=== PATIENT | female | born 1945 | race Caucasian/White ===

== ENCOUNTER → 2016-12-29 | Outpatient (CLI) | payer OTHER, MEDICARE ==
[~2016-12-29] MED LIST: ACETAMINOPHEN325 M1 PO; ADVIL100 M2 PO; ALEVE220 M1 PO; APAP500 PO; ASPIRIN325; ASPIRIN325 PO; COUMADIN 2 MG TA2 M1; CYMBALTA30 MG PO; CYMBALTA60 MG PO; GLUCOSAMINE &1 EACH PO; HYDROCODON-ACE1 EAC5; HYDROCODON-ACE1 EAC5 PO; IBUPROFEN 200200 M1 PO; LOSARTAN-HCTZ1 EAC1 PO; MULTIVITAMINS PO; NORVASC10 MG PO; PERCOCET 5-3251 EACH PO; PRAVACHOL40 MG PO; PRILOSEC 20 MG20 MG PO; TRIBENZOR 40-51 EAC1 PO; VITAMIN D1000 UNI1 PO; ZANAFLEX4 MG PO; ZOFRAN4 MG PO
== END ==
LOC: BC 11:03
DX: N64.4 Mastodynia (principal)

== ENCOUNTER → 2017-01-03 | Outpatient (CLI) | payer OTHER, MEDICARE ==
[~2017-01-03] VITALS: Ht 175.3 cm; Wt 118.2 kg
[~2017-01-03] MED LIST changes: +HYDROCODONE-AP1 EAC6 PO; +NABUMETONE 750750 M1 PO; +OCUVITE TABLET1 EAC1 PO; +VITAMINC500 PO
--- NOTE | ~2017-01-03 | HPC ---
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 I saw her about a year ago in December 2015, for lumbar radicular symptoms. She returns to the pain clinic today for a new complaint that being pain in the upper back. She notes she has had some chronic issues here, but it got worse when she was doing some yard work, complaints of pain in the upper back with activity, radiating into the shoulders and neck. Further conversation notes the radicular component of pain radiating into the left shoulder. She notes pain is about a 4 on a 0-10 visual analog scale. She notes lumbar epidural injection in the past gave her greater than 70% relief for many months. Review of systems was gone over, medications were reconciled. The patient uses Cymbalta 60 mg for some chronic anxiety and depression, Tribenzor for hypertension, ibuprofen [id number] and Tylenol for pain. PHYSICAL EXAMINATION: Shows a 71-year-old female appearing younger than stated age, BMI is 38.5 kg/m2. Vital signs are stable as noted in the EMR. Cervical range of motion is modestly limited. Cervical excision exacerbates pain and produces radicular symptoms in the left shoulder. Left shoulder has limited range of motion to abduction, deep tendon reflexes are generally preserved, right greater than left upper paravertebral muscle spasm. Hand grasp is generally symmetric. Heart is regular rhythmical. Lungs are clear. ASSESSMENT: Symptomatic cervical radiculopathy by clinical exam, component of myofascial pain, history of lumbar radiculopathy. The patient was seen for a prolonged visit from [id number], taken to the procedure room at 1342. ASSESSMENT: Symptomatic cervical radiculopathy, component of lumbar radiculopathy, myofascial pain. RECOMMENDATIONS: 1. Cervical epidural injection under fluoroscopy today. 2. Refer to physical therapy for thoracolumbar spasm and cervical and lumbar radiculopathy history. 3. Discontinue [id number] ibuprofen and start Relafen 750 b.i.d. 4. Follow up in 3 weeks for reevaluation and consideration for cervical MRI if symptoms do not improve. [address] [address] PAIN MANAGEMENT CONSULTATION Name: VIVEK DIAZ Room #: REG JEWEL Pro#: [id number] Admission: 01/03/17 Attend Phys: Nitin Conrad DO Discharge: Date of : 46 Report #: [id number] PROCEDURE: Cervical epidural injection under fluoroscopy. PROCEDURE NOTE: After written and informed consent was obtained including risk of dural puncture, spinal cord trauma, paralysis and increased pain, the patient was taken to the fluoroscopy suite and placed in the prone position, with appropriate abdominal bolstering, neck was flexed, palms under the thighs. Skin was prepped with ChloraPrep. Sterile draping was applied. Skin wheal with 1% Xylocaine was raised. A 22-gauge 3-1/2 inch epidural Tuohy needle was placed via a midline approach at the C7-T1 interspace, advanced under biplanar fluoroscopy using continuous loss of resistance. With appropriate loss of resistance at the expected depth on lateral view, the glass loss of resistance syringe was disconnected. A low volume extension tubing was connected to the needle and a 5 mL syringe. Negative aspiration for cerebrospinal fluid or blood was noted. One mL of Omnipaque was injected which showed spread within the epidural space on biplanar fluoroscopy. This was followed with 80 mg of triamcinolone plus 1 mL of 1.5% preservative Xylocaine. Needle was withdrawn to the interspinous ligament, 0.5 mL of Xylocaine was used to flush the needle. The needle was then completely withdrawn. The area was cleansed. Band-Aid was applied. The patient was allowed to move off the procedure table and ambulated to the recovery room, monitored for an appropriate period of time, discharged in good and stable condition. <ELECTRONICALLY SIGNED> By: Nitin Conrad DO 01/05/17 0758 [id number] [id number] Nitin Conrad DO /nt
[2017-01-03 12:54] VITALS: BP 119/60
== END ==
LOC: PAIN 06:52
DX: M54.16 Radiculopathy, lumbar region (principal); M54.12 Radiculopathy, cervical region; F41.8 Other specified anxiety disorders; I10 Essential (primary) hypertension; E11.9 Type 2 diabetes mellitus without complications

== ENCOUNTER → 2017-08-11 | Outpatient (CLI) | payer OTHER, MEDICARE ==
[~2017-08-11] VITALS: Ht 172.7 cm; Wt 115.4 kg
[~2017-08-11] MED LIST changes: +MOBIC15 MG PO; +PRAVACHOL20 MG PO
--- NOTE | ~2017-08-11 | HPC ---
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 She prior had lumbar epidural injections in 2015. Returns to pain clinic today has had an involved history since I saw her. She has moved from her [place]-balwinder home to a 1-balwinder home with increasing activity and is having increasing axial back and lumbar radicular pain. She was found to have a superficial venous clot in the left lower extremity had episodic spasm and was treated with Eliquis, though she has been off this for greater than a month. Did have a cardiac stress test, which fortunately was negative from a cardiac standpoint, but it did exacerbate right low back and flank pain. When I had seen her back in December, I had written for physical therapy for thoracic and lumbar spasm. She was having this flank pain at that time. She states pain currently is in the low back region on the right leg in an L4 radicular pattern, exacerbated with standing and activity. In fact, she notes that she had radicular pain walking into the clinic today. Chronic neck pain feels like a dull pressure sensation. This is unchanged. PHYSICAL EXAMINATION: GENERAL: Shows a 72-year-old female, BMI is 38.7 kilograms per meter squared. VITAL SIGNS: Stable as noted in the EMR. Cervical range of motion is modestly limited, diffuse tenderness in thoracic paravertebral muscles. No discrete trigger points noted. Does have positive straight leg raise on the right with slight decreased right hip flexion, lower extremity extension strength. Subjective paresthesia and dysesthesia in the left lateral leg. I reviewed diagnostic findings including MRI somewhat dated from 07/2015, which noted L4-L5 anterolisthesis with marked facet arthropathy, left disk bulging noted. ASSESSMENT: 1. Symptomatic lumbar radiculopathy, clinical exam, history, myofascial pain by history, cervical radiculopathy by history. Recommendation: Renew Meloxicam 15 mg 1 a day (getting gastroesophageal reflux with OTC ibuprofen). Renew tizanidine 4 mg t.i.d. for flank spasm and hydrocodone 5/325, limit 75 tablets, one tablet 3 times a day. The patient takes it [place] [address] PAIN MANAGEMENT CONSULTATION Name: VIVEK DIAZ Room #: REG JEWEL Pro#: [id number] Admission: 08/11/17 Attend Phys: Nitin Conrad DO Discharge: Date of : 46 Report #: [id number] episodic pain. 2. Acute exacerbation of lumbar radicular pain. Recommendation: Lumbar epidural injection under fluoroscopy today. Follow up in 4 weeks to evaluate efficacy of therapeutic interventions and medication management. PROCEDURE: Lumbar epidural steroid injection. PROCEDURE NOTE: After both written and informed consent to include risk of spinal cord damage, increased pain, weakness and dural puncture, the patient was taken to the fluoroscopy suite, placed in the prone position. After sterile prep and drape, a skin wheal with lidocaine was raised. A 22-gauge epidural Tuohy needle was inserted in the midline at L3-4 with good loss to resistance. Negative aspiration for cerebrospinal fluid or blood was noted. Then 1 mL of Omnipaque under biplanar fluoroscopy showed good spread within the epidural space. This was followed with 80 mg of triamcinolone plus 1 mL of 1.5% preservative-free Xylocaine, 0.5 mL Xylocaine was then injected to flush the needle; it was removed. The patient was monitored for an appropriate period of time and discharged in good and stable condition. <ELECTRONICALLY SIGNED> By: Nitin Conrad DO 08/12/17 0650 [id number] [id number] Nitin Conrad DO /nt
[2017-08-11 10:46] VITALS: BP 143/75
== END | disposition home or self-care (01) ==
LOC: PAIN 01-24 06:11
DX: M54.16 Radiculopathy, lumbar region (principal); G89.29 Other chronic pain; M54.12 Radiculopathy, cervical region; M79.1 Myalgia; Z79.891 Long term (current) use of opiate analgesic; Z98.890 Other specified postprocedural states; Z88.8 Allergy status to other drugs, medicaments and biological substances; Z79.899 Other long term (current) drug therapy

== ENCOUNTER → 2017-11-14 | Outpatient (CLI) | payer OTHER, MEDICARE ==
[~2017-11-14] VITALS: Ht 172.7 cm; Wt 118.8 kg
--- NOTE | ~2017-11-14 | HPC ---
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 She has had a component of cervical radiculopathy as well. On 08/11/2017, we did an epidural injection at L3-L4; prior epidural injections back in 2015. She had one cervical epidural injection in 12/2016. She notes that the last injection afforded 60% to 70% relief for 2 months. Pain has gradually begun to recur. We tried meloxicam and tizanidine, with little efficacy. She does take hydrocodone 5/325; I gave her a prescription for 75 tablets now 3 months ago. She uses these with caution. She does not use them on a daily basis. She returns noting pain has recurred in the low back, right buttock and leg, some right flank pain. PHYSICAL EXAMINATION: Shows modestly obese 72-year-old female, who rises from the chair using armrest. Modestly antalgic gait. Positive straight leg raise on the right, with slight decreased right hip flexion strength. ASSESSMENT: Symptomatic lumbar radiculopathy, clinical exam and history, excellent good long-term relief following prior epidural injections back in 2016 and again in July of last year. RECOMMENDATIONS: Repeat epidural injection under fluoroscopy today. I have taken the liberty of writing for hydrocodone 5/325, limit 75 tablets, one tablet 2-3 times a day as needed for pain, to be used on non-daily basis. ASSESSMENT: Symptomatic lumbar radiculopathy. PROCEDURE NOTE: Lumbar epidural injection under fluoroscopy. PROCEDURE NOTE: After both written and informed consent to include risk of spinal cord damage, increased pain, weakness and dural puncture, the patient was taken to the fluoroscopy suite, placed in the prone position. After sterile prep and drape, a skin wheal with lidocaine was raised. A 22-gauge epidural Tuohy needle was inserted in the midline at L3-L4 with good loss to resistance. Negative aspiration for cerebrospinal fluid or blood was noted. Then 1 mL of Omnipaque under biplanar fluoroscopy showed good spread within the epidural space. This was followed with 80 mg of triamcinolone plus 1 mL of 1.5% preservative-free Xylocaine, 0.5 mL Xylocaine was then injected to flush the [address] [address] PAIN MANAGEMENT CONSULTATION Name: VIVEK DIAZ Room #: REG JEWEL Pro#: [id number] Admission: 11/14/17 Attend Phys: Nitin Conrad DO Discharge: Date of : 46 Report #: [id number] needle; it was removed. The patient was monitored for an appropriate period of time and discharged in good and stable condition. <ELECTRONICALLY SIGNED> By: Nitin Conrad DO 11/18/17 0944 1216 1242 Nitin Conrad DO /nt
[2017-11-14 11:01] VITALS: BP 123/56
== END | disposition home or self-care (01) ==
LOC: PAIN 07:09
DX: M54.16 Radiculopathy, lumbar region (principal)

== ENCOUNTER → 2018-08-31 | Outpatient (CLI) | payer OTHER, MEDICARE | LOC: RAD 01:19 | DX: Z12.31 Encounter for screening mammogram for malignant neoplasm of breast (principal) ==

== ENCOUNTER → 2018-10-04 | Outpatient (CLI) | payer OTHER, MEDICARE ==
[~2018-10-04] VITALS: Ht 172.7 cm; Wt 98.2 kg
[2018-10-04 09:43] VITALS: BP 112/76
--- NOTE | 2018-10-04 09:53 | NUR ---
Pain Clinic Assessment: 1. History of Osteoarthritis: Not Applicable History of Rheumatoid Arthritis: Not Applicable 2. Height: 5 ft. 8 in. 172.7 cm. Weight: 216.6 lb. oz. 98.249 kg. Patient's BMI: 32.9 3. Vital Signs: BP: 112/76 Pulse: 73 Resp: 20 Temp: 02 Sat: 96 ECG Mon: 4. Pain Intensity: 7 5. Fall Risk: Dizziness: N Needs help standing or walking: N Fallen in the last 3 months: N Fall risk comments: 6. Patient on Blood Thinner: None 7. History of Hypertension: Y 8. Opioid Therapy greater than 6 weeks: N Opiate Contract Signed: 9. Risk Assessment Tool Provided: 10. Functional Assessment Tool: 11. Recreational Drug Use: Never Drug Type: Tobacco Use: Never Smoker Tobacco Type: Amount or Packs/day: How Many Years: Alcohol Use: No Frequency: Quant:
== END | disposition home or self-care (01) ==
LOC: PAIN 07:02
DX: M54.16 Radiculopathy, lumbar region (principal); M17.12 Unilateral primary osteoarthritis, left knee; Z88.8 Allergy status to other drugs, medicaments and biological substances; Z79.899 Other long term (current) drug therapy

== ENCOUNTER → 2019-01-08 | Outpatient (CLI) | payer OTHER, MEDICARE | LOC: RAD 14:24 | DX: M47.814 Spondylosis without myelopathy or radiculopathy, thoracic region (principal); M41.84 Other forms of scoliosis, thoracic region ==

== ENCOUNTER → 2019-01-12 | Outpatient (CLI) | payer OTHER, MEDICARE | LOC: MRI 10:01 | DX: M47.814 Spondylosis without myelopathy or radiculopathy, thoracic region (principal); M41.84 Other forms of scoliosis, thoracic region ==

== ENCOUNTER → 2019-01-19 | Outpatient (CLI) | payer OTHER, MEDICARE ==
[~2019-01-19] VITALS: Ht 172.7 cm; Wt 117.3 kg
--- NOTE | ~2019-01-19 | HPC ---
[facility] [address] [place] [address] PAIN MANAGEMENT CONSULTATION Name: VIVEK DIAZ Room #: REG [facility] Inocencia#: [id number] Admission: 01/19/19 ������������������ Attend Phys: Efra Vail MD Discharge: ������������������ Date of : 46 Report #: [id number] THIS REPORT FOR: //name// CC: Efra Anderson DATE OF SERVICE: 01/19/2019 CHIEF COMPLAINT: Low back pain and pain in both legs. HISTORY: The patient is a 73-year-old female who has been followed in the pain clinic. As you may recall, she suffers from lumbar radiculopathy. Injections in the past have been beneficial. She returns today with pain in the low back area and pain that is radiating down into her right leg. She was having pain in the back. An MRI was performed. 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 She is not experiencing any bowel or bladder dysfunction. Does have some pain in the lower portion of her back that radiates down into her right leg and involves her foot. Describes this discomfort as constant, sharp and rates it as a 3-4. Walking, standing and other activities can exacerbate it. Sitting and resting can be beneficial. Denies any new problems with bowel or bladder dysfunction. ALLERGIES: POLYSORB. CURRENT MEDICATIONS: Hydrocodone 5/325 one p.o. t.i.d. p.r.n., Pravachol 20 mg, Tylenol Extra Strength 500 mg, ibuprofen 200 mg daily, Cymbalta 30 mg, total of 60 daily, Tribenzor 40/5/25 mg tablets daily. PAIN CLINIC ASSESSMENT AND PQRS: 1. The patient has osteoarthritic changes in her knee and has undergone a left knee replacement. The patient has some pain radiating down in the low back area. She is not being treated for osteoarthritis or rheumatoid arthritis. 2. Height 5 feet 8 inches, weight 258 pounds, BMI is 39.3. 3. Vital signs: Blood pressure 124/74, pulse 71, respiratory rate 16, room air saturation 97%. 4. Pain intensity 3-11/29. 5. Fall risk. The patient has not fallen in the last 3 months. 6. Blood thinner. The patient is not on a blood thinning medication. 7. Hypertension. The patient is being treated for hypertension. 8. Opioids greater than 6 weeks. 9. Risk assessment tool, low for opioid use. 10. Functional assessment, . 11. Recreational drug use. The patient denies. 12. Tobacco: The patient has never smoked. 13. Alcohol: The patient denies frequent use of alcoholic beverages. [facility] [address] [place] [address] PAIN MANAGEMENT CONSULTATION Name: VIVEK DIAZ Room #: REG JEWEL Pro#: [id number] Admission: 01/19/19 ������������������ Attend Phys: Efra Vail MD Discharge: ������������������ Date of : 46 Report #: [id number] PHYSICAL EXAMINATION: GENERAL: The patient is a well-developed, well-nourished, somewhat obese white female, appears her stated age. She is alert and oriented x 3. Her affect is appropriate. Speech is fluent. HEENT: Normocephalic, atraumatic. Extraocular eye muscles intact. Sclerae nonicteric. Mucous membranes moist. NECK: Without adenopathy or JVD. HEART: Regular rate. S1, S2. LUNGS: Clear to auscultation. ABDOMEN: Protuberant. Bowel sounds present. MUSCULOSKELETAL: Upper extremity muscle strength judged to be 5-/5 for the major muscle groups in the upper extremity. The patient without significant scoliosis, kyphosis, or lordosis. The patient is having some pain and discomfort. Pain radiates down into the right leg. This involves the L5-S1 dermatomal distribution. IMPRESSION: 1. History of lumbar radiculopathy, improved with epidural steroid injections. 2. 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 3. History of hysterectomy in 1980. 4. Bilateral carpal tunnel surgery. 5. Left shoulder repair in 1999. 6. Left knee replacement in 2011. 7. Fall with fracture of humerus in 2012. 8. Laparoscopic cholecystectomy. LABORATORY DATA: MRI of the thoracic spine dated 01/12/2019: 1. There is normal vertebral body height. Mild degenerative marrow changes are present in the mid to lower thoracic spine. There is an ovoid shaped well-defined 1 cm hyperintense lesions seen within the right lateral aspect of the T9 vertebral body. There is hyperintense on T2 image. This commonly can represent an atypical vertebral body hemangioma. There is mild degenerative disk space loss at T8/T9, T9/T10 and T10/T11, the spinal cord is of normal caliber, contour and signal intensity. The axial images do not demonstrate significant central spinal stenosis or neural foraminal narrowing. No destructive bony changes are present. No paraspinous soft tissue masses or fluid collection is seen. Impression, mild thoracic spondylosis with degenerative space loss at T8/T9, T9/10, and T10/T11. No significant central spinal stenosis or neural foraminal narrowing is seen. Mild dextroscoliosis. A 1 cm intense lesion on right side at T9 vertebral body. This does not meet the classic criteria for a vertebral body hemangioma although it may represent an atypical vertebral body hemangioma. If the patient's symptomatology persists, further evaluation with whole body scan may be of benefit for further characterization. [facility] [address] [place] [address] PAIN MANAGEMENT CONSULTATION Name: VIVEK DIAZ Room #: REG [facility].#: [id number] Admission: 01/19/19 ������������������ Attend Phys: Efra Vail MD Discharge: ������������������ Date of : 46 Report #: [id number] RECOMMENDATIONS: We discussed treatment options with the patient. At this juncture, she feels she would like to wait on the injection. She will consider an epidural steroid injection in the near future. The patient has finding as listed above. She has some concerns. She is interested in undergoing a scan to elucidate more what the item is. After further imaging and if no problems were found, she will return to the pain clinic at which time she will consider undergoing an epidural steroid injection. We reviewed the image with the patient. We looked at the MRI on the computer screen. Questions were answered. We would like to thank you for letting us participate in her care. We hope she continues to improve. ��������������������������������������������� ���������������������������������������� By: ��������������������������������������������� [id number] Efra Vail MD /nt
[2019-01-19 09:04] VITALS: BP 124/74
--- NOTE | 2019-01-19 09:16 | NUR ---
Pain Clinic Assessment: 1. History of Osteoarthritis: Not Applicable History of Rheumatoid Arthritis: Not Applicable 2. Height: 5 ft. 8 in. 172.7 cm. Weight: 258.6 lb. oz. 117.300 kg. Patient's BMI: 39.3 3. Vital Signs: BP: 124/74 Pulse: 71 Resp: 16 Temp: 02 Sat: 97 ECG Mon: 4. Pain Intensity: 3-4 5. Fall Risk: Dizziness: N Needs help standing or walking: N Fallen in the last 3 months: N Fall risk comments: 6. Patient on Blood Thinner: None 7. History of Hypertension: Y 8. Opioid Therapy greater than 6 weeks: N Opiate Contract Signed: 9. Risk Assessment Tool Provided: LOW 10. Functional Assessment Tool: 11. Recreational Drug Use: Never Drug Type: Tobacco Use: Never Smoker Tobacco Type: Amount or Packs/day: How Many Years: Alcohol Use: No Frequency: Quant:
== END ==
LOC: PAIN 06:46
DX: M47.24 Other spondylosis with radiculopathy, thoracic region (principal); Z79.899 Other long term (current) drug therapy; Z96.652 Presence of left artificial knee joint; Z90.710 Acquired absence of both cervix and uterus; Z90.49 Acquired absence of other specified parts of digestive tract

== ENCOUNTER → 2019-08-29 | Outpatient (CLI) | payer OTHER, MEDICARE ==
[~2019-08-29] VITALS: Ht 172.7 cm; Wt 115.7 kg
[~2019-08-29] MED LIST changes: +HYDROCODON-ACE1 EAC7 PO
[2019-08-29 09:59] VITALS: BP 116/67
--- NOTE | 2019-08-29 10:24 | NUR ---
Pain Clinic Assessment: 1. History of Osteoarthritis: BACK History of Rheumatoid Arthritis: Not Applicable 2. Height: 5 ft. 8 in. 172.7 cm. Weight: 255.0 lb. oz. 115.668 kg. Patient's BMI: 38.8 3. Vital Signs: BP: 116/67 Pulse: 66 Resp: 16 Temp: 02 Sat: 97 ECG Mon: 4. Pain Intensity: 4-5 5. Fall Risk: Dizziness: N Needs help standing or walking: N Fallen in the last 3 months: N Fall risk comments: 6. Patient on Blood Thinner: None 7. History of Hypertension: Y 8. Opioid Therapy greater than 6 weeks: N Opiate Contract Signed: 9. Risk Assessment Tool Provided: LOW 10. Functional Assessment Tool: 11. Recreational Drug Use: Never Drug Type: Tobacco Use: Never Smoker Tobacco Type: Amount or Packs/day: How Many Years: Alcohol Use: No Frequency: Quant:
== END | disposition home or self-care (01) ==
LOC: PAIN 08-01 14:09
DX: M54.16 Radiculopathy, lumbar region (principal); Z79.899 Other long term (current) drug therapy

== ENCOUNTER → 2019-10-01 | Outpatient (CLI) | payer OTHER, MEDICARE | LOC: SJCVCIMAG 13:52 | DX: I25.10 Atherosclerotic heart disease of native coronary artery without angina pectoris (principal); I10 Essential (primary) hypertension; E78.5 Hyperlipidemia, unspecified; Z78.0 Asymptomatic menopausal state; Z79.899 Other long term (current) drug therapy ==

== ENCOUNTER → 2020-01-23 | Outpatient (CLI) | payer OTHER, MEDICARE | LOC: BC 08:10 | DX: Z12.31 Encounter for screening mammogram for malignant neoplasm of breast (principal) ==

== ENCOUNTER → 2020-02-18 | Outpatient (CLI) | payer OTHER, MEDICARE | LOC: SJCVCIMAG 12-03 10:22 | PROVIDERS: ATTEND Internal Medicine Cardiovascular Disease | DX: I65.23 Occlusion and stenosis of bilateral carotid arteries (principal); R94.31 Abnormal electrocardiogram [ECG] [EKG]; I25.10 Atherosclerotic heart disease of native coronary artery without angina pectoris; E78.00 Pure hypercholesterolemia, unspecified; I10 Essential (primary) hypertension; Z86.718 Personal history of other venous thrombosis and embolism; Z79.82 Long term (current) use of aspirin; Z79.899 Other long term (current) drug therapy; Z82.49 Family history of ischemic heart disease and other diseases of the circulatory system ==

== ENCOUNTER → 2020-02-18 | Outpatient (CLI) | payer OTHER | LOC: CAT 15:13 | PROVIDERS: ATTEND Internal Medicine Cardiovascular Disease | DX: Z13.6 Encounter for screening for cardiovascular disorders (principal); I25.10 Atherosclerotic heart disease of native coronary artery without angina pectoris; E78.00 Pure hypercholesterolemia, unspecified ==

== ENCOUNTER → 2020-04-03 | Outpatient (CLI) | payer OTHER, MEDICARE | LOC: LAB 09:05 | PROVIDERS: ATTEND Family Medicine | DX: Z20.828 Contact with and (suspected) exposure to other viral communicable diseases (principal); R05 Cough ==

== ENCOUNTER → 2020-09-23 | Outpatient (CLI) | payer OTHER, MEDICARE | LOC: NUC 09:25 | PROVIDERS: ATTEND Family Medicine | DX: M25.80 Other specified joint disorders, unspecified joint (principal) ==

== ENCOUNTER → 2020-10-15 | Outpatient (CLI) | payer OTHER, MEDICARE ==
[~2020-10-15] VITALS: Ht 172.7 cm; Wt 115.9 kg
[~2020-10-15] MED LIST changes: +DAILY VITAMIN1 EAC6 PO; +DULOXETINE HCL60 MG PO; +PRILOSEC OTC20 MG PO; +ROSUVASTATIN CA20 MG PO; +TURMERIC500 M2 PO; +VITAMIN C500 M1 PO; +VITAMIN D310 MCG PO
[2020-10-15 09:13] VITALS: BP 138/78
--- NOTE | 2020-10-15 09:36 | NUR ---
Pain Clinic Assessment: 1. History of Osteoarthritis: BACK History of Rheumatoid Arthritis: Not Applicable 2. Height: 5 ft. 8 in. 172.7 cm. Weight: 255.6 lb. oz. 115.940 kg. Patient's BMI: 38.9 3. Vital Signs: BP: 138/78 Pulse: 71 Resp: 20 Temp: 02 Sat: 95 ECG Mon: 4. Pain Intensity: 5 5. Fall Risk: Dizziness: N Needs help standing or walking: N Fallen in the last 3 months: N Fall risk comments: 6. Patient on Blood Thinner: None 7. History of Hypertension: Y 8. Opioid Therapy greater than 6 weeks: N Opiate Contract Signed: 9. Risk Assessment Tool Provided: LOW-0 10. Functional Assessment Tool: 11. Recreational Drug Use: Never Drug Type: Tobacco Use: Never Smoker Tobacco Type: Amount or Packs/day: How Many Years: Alcohol Use: No Frequency: Quant:
== END | disposition home or self-care (01) ==
LOC: PAIN 06:49
PROVIDERS: ATTEND Anesthesiology Pain Medicine
DX: M79.18 Myalgia, other site (principal); M54.5 Low back pain; I10 Essential (primary) hypertension; M19.90 Unspecified osteoarthritis, unspecified site; G89.29 Other chronic pain; Z98.890 Other specified postprocedural states; Z79.899 Other long term (current) drug therapy; Z96.652 Presence of left artificial knee joint; Z90.710 Acquired absence of both cervix and uterus; Z90.49 Acquired absence of other specified parts of digestive tract; Z88.8 Allergy status to other drugs, medicaments and biological substances

== ENCOUNTER → 2021-03-17 | Outpatient (CLI) | payer OTHER, MEDICARE | LOC: RAD 09:30 | PROVIDERS: ATTEND Family Medicine | DX: Z12.31 Encounter for screening mammogram for malignant neoplasm of breast (principal) ==

== ENCOUNTER → 2021-05-29 | Outpatient (CLI) | payer OTHER, MEDICARE ==
[~2021-05-29] VITALS: Ht 172.7 cm; Wt 112.5 kg
[2021-05-29 10:29] VITALS: BP 138/84
--- NOTE | 2021-05-29 10:33 | NUR ---
Pain Clinic Assessment: 1. History of Osteoarthritis: BACK History of Rheumatoid Arthritis: Not Applicable 2. Height: 5 ft. 8 in. 172.7 cm. Weight: 248.0 lb. oz. 112.492 kg. Patient's BMI: 37.7 3. Vital Signs: BP: 138/84 Pulse: 64 Resp: 16 Temp: 02 Sat: 95 ECG Mon: 4. Pain Intensity: 4 5. Fall Risk: Dizziness: N Needs help standing or walking: N Fallen in the last 3 months: N Fall risk comments: 6. Patient on Blood Thinner: None 7. History of Hypertension: Y 8. Opioid Therapy greater than 6 weeks: N Opiate Contract Signed: 9. Risk Assessment Tool Provided: LOW-0 10. Functional Assessment Tool: 11. Recreational Drug Use: Never Drug Type: Tobacco Use: Never Smoker Tobacco Type: Amount or Packs/day: How Many Years: Alcohol Use: No Frequency: Quant:
== END | disposition home or self-care (01) ==
LOC: PAIN 07:05
PROVIDERS: ATTEND Anesthesiology Pain Medicine
DX: M54.16 Radiculopathy, lumbar region (principal); G89.29 Other chronic pain; I10 Essential (primary) hypertension; Z98.890 Other specified postprocedural states; Z79.899 Other long term (current) drug therapy; Z90.49 Acquired absence of other specified parts of digestive tract; Z90.710 Acquired absence of both cervix and uterus; Z96.652 Presence of left artificial knee joint; Z88.8 Allergy status to other drugs, medicaments and biological substances

== ENCOUNTER → 2021-06-25 | Outpatient (CLI) | payer OTHER, MEDICARE | LOC: SJCVC 11:50 | PROVIDERS: ATTEND Internal Medicine Cardiovascular Disease | DX: R94.31 Abnormal electrocardiogram [ECG] [EKG] (principal); I44.0 Atrioventricular block, first degree; R93.1 Abnormal findings on diagnostic imaging of heart and coronary circulation; I10 Essential (primary) hypertension; E78.00 Pure hypercholesterolemia, unspecified; F32.9 Major depressive disorder, single episode, unspecified; G89.4 Chronic pain syndrome; Z79.82 Long term (current) use of aspirin; Z79.899 Other long term (current) drug therapy ==

== ENCOUNTER → 2021-08-31 | Outpatient (CLI) | payer OTHER, MEDICARE ==
[~2021-08-31] MED LIST changes: +CHILDREN'S ASPI81 M1 PO; +PROBIOTIC1 EAC7 PO; +TYLENOL EXTRA500 MG PO
== END ==
LOC: SJCVCIMAG 07:11
PROVIDERS: ATTEND Internal Medicine Cardiovascular Disease
DX: Z01.810 Encounter for preprocedural cardiovascular examination (principal); I44.0 Atrioventricular block, first degree; E78.5 Hyperlipidemia, unspecified; I10 Essential (primary) hypertension; I25.10 Atherosclerotic heart disease of native coronary artery without angina pectoris; I63.9 Cerebral infarction, unspecified; Z79.82 Long term (current) use of aspirin; Z79.899 Other long term (current) drug therapy

== ENCOUNTER → 2021-09-02 | Outpatient (CLI) | payer OTHER, MEDICARE ==
[2021-09-02 13:17] LABS: HEMATOCRIT 39.9 % (37.0-47.0); HEMOGLOBIN 13.2 gm/dL (12.0-15.0); MCHC 33.1 g/dL (28.0-37.0); MCV 87.6 fL (80.0-100.0); RBC 4.55 mil/uL (4.20-5.00); RDW 13.5 % (10.5-14.5); WBC 6.7 thou/uL (4.0-11.0)
[2021-09-02 13:19] LABS: URINE BILIRUBIN NEGATIVE (Negative); URINE BLOOD NEGATIVE (Negative); URINE CLARITY CLEAR; URINE COLOR YELLOW; URINE GLUCOSE-RANDOM* NEGATIVE (Negative); URINE KETONES NEGATIVE (Negative); URINE NITRITE-REFLEX NEGATIVE (Negative); URINE PROTEIN (DIPSTICK) NEGATIVE (Negative); URINE SPECIFIC GRAVITY <= 1.005 (1.005-1.035); URINE UROBILINOGEN 0.2 E.U./dl (0.2-1.0)
[2021-09-02 13:21] LABS: URINE LEUKOCYTES-REFLEX 2+ (Negative)
[2021-09-02 13:30] LABS: CASTS None Seen /LPF (None Seen); SQUAMOUS 0-3 Few /LPF (0-3)
[2021-09-02 13:31] LABS: BACTERIA-REFLEX 1-9 Few /HPF (None Seen); CRYSTALS None Seen /LPF (None Seen); URINE RBC None Seen /HPF (NONE SEEN); URINE WBC-REFLEX 0-5 Rare /HPF (0-5)
[2021-09-02 13:38] LABS: INR 1.03; PROTIME 11.2 Seconds (10.5-12.1)
[2021-09-02 13:39] LABS: ALBUMIN 3.8 g/dL (3.4-5.0); CALCIUM 9.1 mg/dL (8.5-10.1); CREATININE 0.9 mg/dL (0.6-1.0); POTASSIUM 3.8 mmol/L (3.5-5.1)
== END ==
LOC: PAC 11:52
PROVIDERS: ATTEND Orthopaedic Surgery
DX: Z01.812 Encounter for preprocedural laboratory examination (principal); M17.11 Unilateral primary osteoarthritis, right knee

== ENCOUNTER 2021-09-14 06:36 | Observation (INO) | payer OTHER, MEDICARE ==
[~2021-09-14] VITALS: Ht 152.4 cm; Wt 111.6 kg
--- NOTE | ~2021-09-14 | O ---
[facility] [place] [address] OPERATIVE REPORT Name: VIVEK DIAZ Room #: 447-P [facility] Efren Pro#: [id number] Admission: 09/14/21 Attend Phys: Pete Lee MD Discharge: 09/15/21 Date of : 47 Report #: [id number] THIS REPORT FOR: cc: Fede Anderson MD, Neal A. MD Abraham,Pete Gautam MD ~ DATE OF SERVICE: 09/14/2021 DATE OF SURGERY: 09/14/2021 PREOPERATIVE DIAGNOSIS: Right knee osteoarthritis. POSTOPERATIVE DIAGNOSIS: Right knee osteoarthritis. PROCEDURE: Right total knee arthroplasty using Navio robotic assistance. SURGEON: Pete Lee MD FACS TEACHER: Marley Guerrero PA-C. INDICATION FOR FACS TEACHER: Throughout the case, extensive retraction and manipulation of the knee was required. This was supported by my home health assistant. ANESTHESIA: LMA with adductor canal block. IMPLANTS: A [employer] size 5 Journey II BCS cobalt chrome femur, size 4 tibia, size 11 polyethylene, size 35 patella. TOURNIQUET TIME: 48 minutes. COMPLICATIONS: None. SPECIMENS: None. CONDITION UPON LEAVING THE OR: Stable. INDICATIONS FOR PROCEDURE: The patient is a 76-year-old female with severe right knee osteoarthritis. She had failed conservative measures for this and after discussion with her, she elected for right total knee arthroplasty. DESCRIPTION OF PROCEDURE: Risks, benefits, alternatives, complications were discussed in detail with the patient including, but not limited to risk of anesthesia, risk of damage to nerves, arteries, blood vessels, risk for infection, bleeding, risk for continued knee pain and need for reoperation. Informed consent was obtained from the patient. The right knee was appropriately marked in the preoperative holding area. IV Ancef was given for [facility] [address] [place] [address] OPERATIVE REPORT Name: VIVEK DIAZ Room #: 447-P [facility] Efren Pro#: [id number] Admission: 09/14/21 Attend Phys: Pete Lee MD Discharge: 09/15/21 Date of : 47 Report #: [id number] preoperative antibiotics. She was brought to the operating room and placed in supine position on the operating room table. LMA anesthesia was induced without complication. Tourniquet was placed on the right thigh. Right lower extremity was prepped and draped in a normal sterile fashion. Timeout was performed properly identifying the patient, procedure, as well as the instrumentation and implants. All in the operating room in agreement. Right lower extremity was exsanguinated and tourniquet inflated. Tourniquet time was 48 minutes. A standard midline approach to knee was made with a 10 blade through the skin. Dissection was taken down sharply to the fascia and deep flaps were developed medially and laterally. Fresh 10 blade was used to make a medial parapatellar arthrotomy and the knee was inspected. There was severe tricompartmental osteoarthritis. ACL and PCL were removed sharply. Reference pins were placed in the femur and the tibia. The knee was then digitally mapped using the [employer] robotic system. Intraoperative plan was made. We sized a size 5 femur, the size 4 tibia and a 10 spacer. After acceptance of the intraoperative plan, a distal femoral cut was made with Navio bur. Distal femoral cutting block was pinned in place and chamfer cuts were made. Attention was turned to the tibia. Remainder of the menisci removed with Bovie cautery. Tibial resection guide was pinned in place using Navio for placement and tibial resection was made. Flexion and extension gaps were checked and found to have good balance in flexion and extension, both medially and laterally. Tibia was sized, found to be a size 4. Size 4 tibial trial was placed, pinned and punched. Size 5 femoral trial was placed and box cut was made. This was then trialed with a size 10 and then a size 11 polyethylene and size 11 polyethylene demonstrated 1-2 mm of laxity medially and laterally throughout range of motion of the knee. A 9 mm of bone was resected from the posterior surface of the patella and a size 35 patellar trial button was placed. Knee was taken through range of motion, found to be stable, found to have good patellar tracking. Trial components were removed. Bone ends were thoroughly irrigated with normal saline. A final size 4 tibia, size 5 Journey II BCS cobalt chrome femur and a size 35 patella were cemented in place using standard cementation techniques. While the cement cured, a periarticular injection consisting of morphine, ropivacaine, epinephrine and Toradol was placed around the knee joint capsule. After the cement cured, tourniquet was deflated. Hemostasis was obtained with Bovie cautery. A final size 11 polyethylene was placed. A gram of vancomycin was placed deep in the joint. The fascia was closed with 0 Vicryl. Skin was closed with 2-0 Vicryl, 3-0 Monocryl. Dermabond and a CONNIE dressing was applied. The patient tolerated this procedure well and went to recovery room under care of Anesthesia postoperatively. By: [id number] Pete Lee MD /nishi
--- NOTE | ~2021-09-14 | O ---
[facility] [place] [address] OPERATIVE REPORT Name: VIVEK DIAZ Room #: 447-P [facility] Efren Pro#: [id number] Admission: 09/14/21 Attend Phys: Pete Lee MD Discharge: 09/15/21 Date of : 47 Report #: [id number] THIS REPORT FOR: cc: Fede Anderson MD, Neal A. MD Abraham,Pete Gautam MD ~ DATE OF SERVICE: 09/14/2021 DATE OF SURGERY: 09/14/2021 PREOPERATIVE DIAGNOSIS: Right knee osteoarthritis. POSTOPERATIVE DIAGNOSIS: Right knee osteoarthritis. PROCEDURE: Right total knee arthroplasty using Navio robotic assistance. SURGEON: Pete Lee MD ROUTE SERVICE MANAGER: Marley Guerrero PA-C. INDICATION FOR ROUTE SERVICE MANAGER: Throughout the case, extensive retraction and manipulation of the knee was required. This was supported by my compounding assistant. ANESTHESIA: LMA with adductor canal block. IMPLANTS: A [employer] size 5 Journey II BCS cobalt chrome femur, size 4 tibia, size 11 polyethylene, size 35 patella. TOURNIQUET TIME: 48 minutes. COMPLICATIONS: None. SPECIMENS: None. CONDITION UPON LEAVING THE OR: Stable. INDICATIONS FOR PROCEDURE: The patient is a 76-year-old female with severe right knee osteoarthritis. She had failed conservative measures for this and after discussion with her, she elected for right total knee arthroplasty. DESCRIPTION OF PROCEDURE: Risks, benefits, alternatives, complications were discussed in detail with the patient including, but not limited to risk of anesthesia, risk of damage to nerves, arteries, blood vessels, risk for infection, bleeding, risk for continued knee pain and need for reoperation. Informed consent was obtained from the patient. The right knee was appropriately marked in the preoperative holding area. IV Ancef was given for [facility] [address] [place] [address] OPERATIVE REPORT Name: VIVEK DIAZ Room #: 447-P [facility] Efren Pro#: [id number] Admission: 09/14/21 Attend Phys: Pete Lee MD Discharge: 09/15/21 Date of : 47 Report #: [id number] preoperative antibiotics. She was brought to the operating room and placed in supine position on the operating room table. LMA anesthesia was induced without complication. Tourniquet was placed on the right thigh. Right lower extremity was prepped and draped in a normal sterile fashion. Timeout was performed properly identifying the patient, procedure, as well as the instrumentation and implants. All in the operating room in agreement. Right lower extremity was exsanguinated and tourniquet inflated. Tourniquet time was 48 minutes. A standard midline approach to knee was made with a 10 blade through the skin. Dissection was taken down sharply to the fascia and deep flaps were developed medially and laterally. Fresh 10 blade was used to make a medial parapatellar arthrotomy and the knee was inspected. There was severe tricompartmental osteoarthritis. ACL and PCL were removed sharply. Reference pins were placed in the femur and the tibia. The knee was then digitally mapped using the [employer] robotic system. Intraoperative plan was made. We sized a size 5 femur, the size 4 tibia and a 10 spacer. After acceptance of the intraoperative plan, a distal femoral cut was made with Navio bur. Distal femoral cutting block was pinned in place and chamfer cuts were made. Attention was turned to the tibia. Remainder of the menisci removed with Bovie cautery. Tibial resection guide was pinned in place using Navio for placement and tibial resection was made. Flexion and extension gaps were checked and found to have good balance in flexion and extension, both medially and laterally. Tibia was sized, found to be a size 4. Size 4 tibial trial was placed, pinned and punched. Size 5 femoral trial was placed and box cut was made. This was then trialed with a size 10 and then a size 11 polyethylene and size 11 polyethylene demonstrated 1-2 mm of laxity medially and laterally throughout range of motion of the knee. A 9 mm of bone was resected from the posterior surface of the patella and a size 35 patellar trial button was placed. Knee was taken through range of motion, found to be stable, found to have good patellar tracking. Trial components were removed. Bone ends were thoroughly irrigated with normal saline. A final size 4 tibia, size 5 Journey II BCS cobalt chrome femur and a size 35 patella were cemented in place using standard cementation techniques. While the cement cured, a periarticular injection consisting of morphine, ropivacaine, epinephrine and Toradol was placed around the knee joint capsule. After the cement cured, tourniquet was deflated. Hemostasis was obtained with Bovie cautery. A final size 11 polyethylene was placed. A gram of vancomycin was placed deep in the joint. The fascia was closed with 0 Vicryl. Skin was closed with 2-0 Vicryl, 3-0 Monocryl. Dermabond and a CONNIE dressing was applied. The patient tolerated this procedure well and went to recovery room under care of Anesthesia postoperatively. By: [id number] Pete Lee MD /nishi
[2021-09-14 08:29] VITALS: BP 131/84
[2021-09-14 14:00] VITALS: BP 131/84
--- NOTE | 2021-09-14 19:22 | NUR ---
PATIENT WALK OUT IN THE [facility] WITH PT. OBSERVE OVER NIGHT. PAIN MED GIVEN PRN. CALL LIGHT WITHIN REACH, WILL CONTINOUS MONITORING.
[2021-09-14 20:49] VITALS: BP 113/64
--- NOTE | 2021-09-15 06:00 | NUR ---
Pt. rested quietly at intervals during the night when checked on during frequent rounds. Up to the bathroom with gait belt and walker. Pt. tolerated the aactivity well. Dressing to rigth knee is intact.
[2021-09-15 08:40] VITALS: BP 114/66
[2021-09-15 10:51] VITALS: BP 114/66
== END 2021-09-15 11:25 | disposition home or self-care (01) ==
LOC: OR 06:36 → 4S 06:36 → OR 07:48 → 4S 12:12 → OR 12:13 → 4S 09-15 11:25
PROVIDERS: ADMIT Orthopaedic Surgery; ATTEND Orthopaedic Surgery
DX: M17.11 Unilateral primary osteoarthritis, right knee (principal); Z20.822 Contact with and (suspected) exposure to COVID-19
CPT/HCPCS: 10102; 50010; 50101; 50415; 50954; 51130; 51225; 53000; 53078; 54118; 56527; 56528; 57095; 57103; 57110; 57127; 57180; 58239; 59024; 62110; 62900; 64043; 70005